=== PATIENT | male | born 1940 | race Caucasian/White ===

== ENCOUNTER 2017-08-10 19:43 | Emergency (ER) | payer MEDICARE, OTHER ==
[~2017-08-10] VITALS: Ht 182.9 cm; Wt 72.2 kg
[2017-08-10 20:10] VITALS: BP 162/61; PULSE 62; RESP 16; TEMP 97.8; O2SAT 97
[2017-08-10] MEDS ORDERED: TAMS5CAP PO (20:15)
[2017-08-10] MEDS ORDERED: ASPIRIN 81 MG CHEW TAB PO ONE (20:15)
[2017-08-10] MEDS ORDERED: SODIUM CHLORIDE 0.9% FLUSH 10 ML FLUSH IVF PRN (20:15)
[2017-08-10] MEDS ORDERED: AMBI5TAB PO (20:15)
[2017-08-10] MEDS ORDERED: GLUC100013 PO (20:15)
[2017-08-10] MEDS ORDERED: MULT-65 PO (20:15)
--- NOTE | 2017-08-10 20:15 | PD ---
HPI Chief Complaint: Cardiac Complaint Time Seen by Provider: 19:57 Travel History International Travel<30 days: No Contact w/Intl Traveler<30days: No Traveled to known affect area: No History of Present Illness HPI 76-year-old male presents to the emergency department by private transportation the care of his spouse for evaluation of palpitations or fluttering. Patient states that he has been his usual state of fairly good health with history of COPD enlarged prostate and previous pacemaker from 2005 for episode of bradycardia with near syncope. Patient's had no chest pain no increased shortness of breath no sweats no nausea no vomiting no referred neck jaw back shoulder arm or abdominal pain. Near-syncope or syncope. Patient states she is fairly active and continues to work part-time and after returning home from work this evening before dinner he started noticing that he is feeling a little sensation of fluttering in his chest. No recent long distance travel no protracted bedrest no surgical procedure no lower extremity pain or swelling orthopnea or PND. Patient also has had no recent febrile illness no productive cough or increased wheezing. Patient has not yet had disease in his flu vaccine. Patient rates his pain as 0/10 in intensity. Patient is unable to identify exacerbating or alleviating factors. Patient denies any active symptoms at this time. Patient also shares recently had his pacemaker evaluated and it checked out well. PFSH Past Medical History Narrative Medical Symptomatic bradycardia pacemaker dyslipidemia COPD lung surgery enlarged prostate; tobacco use; nursing notes reviewed Blood Disorders: No Cardiovascular Problems: Yes (LOW BLOOD PRESSURE/SLOW HEART BEAT...HAS HIGH BLOOD PRESSURE) High Cholesterol: Yes (HAS HIGH BLOOD PRESSURE..) Glaucoma: No Genitourinary: No Immune Disorder: No Musculoskeletal: No Neurologic: No Respiratory: No Thyroid Disease: No Past Surgical History Cardiac Surgery: Yes (PACEMAKER BEGINNING OF OCTOBER 11) Ear Surgery: No Endocrine Surgery: No Eye Surgery: No Genitourinary Surgery: No Gynecologic Surgery: No Oral Surgery: No Thoracic Surgery: Yes (LUNG SURGERY, REINFLATED LUNG( SECOND OCCURRENCE)) Other Surgery: Yes Social History Alcohol Use: No Tobacco Use: Yes (STOPPED OCT 06 45PACK/HISTORY) Substance Use: No Allergies-Medications (Allergen,Severity, Reaction): Coded Allergies: morphine (Unverified Allergy, Severe, 08/10/17) Reported Meds & Prescriptions Reported Meds & Active Scripts Active Reported Glucosamine (Glucosamine Sulfate) 1,000 Mg Cap 1,000 Mg PO DAILY Multi-Vitamin Daily (Multiple Vitamin) 1 Tab Tab 1 Tab PO DAILY Ambien (Zolpidem Tartrate) 5 Mg Tab 5 Mg PO HS PRN Flomax (Tamsulosin HCl) 0.4 Mg Cap 0.4 Mg PO HS Narrative Medication Inhalers, sleeping pill, prostate pill Review of Systems Except as stated in HPI: all other systems reviewed are Neg General / Constitutional: No: Fever, Chills Eyes: No: Visual changes HENT: No: Headaches, Lightheadedness, Congestion Cardiovascular: Positive: Palpitations, No: Chest Pain or Discomfort, Diaphoresis, Syncope, Dyspnea on exertion, Edema Respiratory: Positive: Cough (chronic), Shortness of Breath (chronic not worse than baseline), No: Wheezing, Orthopnea, Pleuritic Pain Gastrointestinal: No: Nausea, Vomiting, Abdominal Pain Genitourinary: No: Flank Pain Musculoskeletal: No: Myalgias, Arthralgias, Edema, Pain Skin: No Rash Neurologic: No: Weakness, Dizziness, Syncope, Focal Abnormalities, Coordination Problem, Headache, Change in Mentation Psychiatric: No: Anxiety Hematologic/Lymphatic: No: Easy Bruising Physical Exam Narrative GENERAL: Well-developed well-nourished male in no acute distress no respiratory distress; GCS 15 SKIN: Warm and dry. HEAD: Atraumatic. Normocephalic. EYES: Pupils equal and round. No scleral icterus. No injection or drainage. ENT: No nasal bleeding or discharge. Mucous membranes pink and moist. NECK: Trachea midline. No JVD. CARDIOVASCULAR: Regular rate and rhythm. RESPIRATORY: No accessory muscle use. Clear to auscultation. Breath sounds equal bilaterally. GASTROINTESTINAL: Abdomen soft, non-tender, nondistended. Hepatic and splenic margins not palpable. MUSCULOSKELETAL: Extremities without clubbing, cyanosis, or edema. No obvious deformities. NEUROLOGICAL: Awake and alert. No obvious cranial nerve deficits. Motor grossly within normal limits. Five out of 5 muscle strength in the arms and legs. Normal speech. PSYCHIATRIC: Appropriate mood and affect; insight and judgment normal. Data Data Last Documented VS Vital Signs Date Time Temp Pulse Resp B/P (MAP) Pulse Ox O2 Delivery O2 Flow Rate FiO2 08/10/17 20:33 140/60 (86) 131/58 (82) 08/10/17 20:19 97 Room Air 08/10/17 20:19 16 08/10/17 20:10 97.8 62 Orders Orders Electrocardiogram (08/10/17 20:07) Basic Metabolic Panel (Bmp) (08/10/17 20:07) Ckmb (Isoenzyme) Profile (08/10/17 20:07) Complete Blood Count With Diff (08/10/17 20:07) Magnesium (Mg) (08/10/17 20:07) Prothrombin Time / Inr (Pt) (08/10/17 20:07) Act Partial Throm Time (Ptt) (08/10/17 20:07) Troponin I (08/10/17 20:07) Chest, Single Ap (08/10/17 20:07) Ecg Monitoring (08/10/17 20:07) Bilateral Bp Monitoring (08/10/17 20:07) Iv Access Insert/Monitor (08/10/17 20:07) Oximetry (08/10/17 20:07) Oxygen Administration (08/10/17 20:07) Aspirin Chew (Aspirin Chew) (08/10/17 20:15) Sodium Chloride 0.9% Flush (Ns Flush) (08/10/17 20:15) CKMB (08/10/17 20:10) CKMB% (08/10/17 20:10) Labs Laboratory Tests Test 08/10/17 20:10 White Blood Count 9.0 TH/MM3 Red Blood Count 4.62 MIL/MM3 Hemoglobin 13.3 GM/DL Hematocrit 39.5 % Mean Corpuscular Volume 85.5 FL Mean Corpuscular Hemoglobin 28.9 PG Mean Corpuscular Hemoglobin Concent 33.8 % Red Cell Distribution Width 13.7 % Platelet Count 253 TH/MM3 Mean Platelet Volume 6.9 FL Neutrophils (%) (Auto) 57.6 % Lymphocytes (%) (Auto) 28.5 % Monocytes (%) (Auto) 6.2 % Eosinophils (%) (Auto) 7.0 % Basophils (%) (Auto) 0.7 % Neutrophils # (Auto) 5.1 TH/MM3 Lymphocytes # (Auto) 2.6 TH/MM3 Monocytes # (Auto) 0.6 TH/MM3 Eosinophils # (Auto) 0.6 TH/MM3 Basophils # (Auto) 0.1 TH/MM3 CBC Comment DIFF FINAL Differential Comment Prothrombin Time 10.9 SEC Prothromb Time International Ratio 1.0 RATIO Activated Partial Thromboplast Time 26.1 SEC Blood Urea Nitrogen 18 MG/DL Creatinine 1.20 MG/DL Random Glucose 135 MG/DL Calcium Level 8.9 MG/DL Magnesium Level 2.3 MG/DL Sodium Level 139 MEQ/L Potassium Level 3.6 MEQ/L Chloride Level 107 MEQ/L Carbon Dioxide Level 22.5 MEQ/L Anion Gap 10 MEQ/L Estimat Glomerular Filtration Rate 59 ML/MIN Total Creatine Kinase 279 U/L Troponin I LESS THAN 0.02 NG/ML MDM Medical Decision Making Medical Screen Exam Complete: Yes Emergency Medical Condition: Yes Medical Record Reviewed: Yes Interpretation(s) EKG: Paced rhythm rate 62 right bundle branch block block troponin I:less than 0.02, not elevated; CK: 279, ck mb%: 0.9% not elevated Last Impressions Chest X-Ray 08/10/172006 Signed Impressions: Service Date/Time: Thursday, August 10, 2017 20:11 - CONCLUSION: No acute disease. James Singh MD CBC & BMP Diagram 08/10/17 20:10 Calcium Level 8.9, Magnesium Level 2.3 Vital Signs Date Time Temp Pulse Resp B/P (MAP) Pulse Ox O2 Delivery O2 Flow Rate FiO2 08/10/17 20:33 140/60 (86) 131/58 (82) 08/10/17 20:19 97 Room Air 08/10/17 20:19 16 97 Room Air 08/10/17 20:10 97.8 62 16 162/61 (94) 97 08/10/17 20:10 62 97 Room Air Differential Diagnosis Palpitations, arrhythmia, electrolyte disturbance, ACS, ND, CHF, exacerbation COPD, PE Narrative Course Patient placed on groundwater monitoring technician IV access obtained specimens collected and sent for resulting EKG performed which reveals no acute ST elevation or injury pattern intermittent atrial paced rhythm with underlying right bundle branch block and left anterior fascicular block and on cardiac monitoring started to have rare unifocal PVC's. Diagnosis Primary Impression: Palpitations Additional Impressions: Unifocal PVCs History of COPD Referrals: Primary Care Physician call for appointment Patient Instructions: General Instructions Additional Instructions: Continue current medications as presently prescribed Follow up with her primary care provider Return to the emergency department for any concerns or change in condition Add low dose aspirin 81 mg daily Med/Other Pt SpecificInfo: No Change to Meds Disposition: 01 DISCHARGE HOME Condition: Stable Aidee Zhou MD Aug 10, 2017 20:15
[2017-08-10 20:19] VITALS: RESP 16; O2SAT 97
--- NOTE | 2017-08-10 20:25 | RADRPT ---
EXAM DATE/TIME: 08/10/2017 20:11 [facility] COMPARISON: No previous studies available for comparison. INDICATIONS : Shortness of breath. MEDICAL HISTORY : Hypertension. SURGICAL HISTORY : Pacemaker. ENCOUNTER: Initial ACUITY: 1 day PAIN SCORE: 0/10 LOCATION: Bilateral chest FINDINGS: A single view of the chest demonstrates the lungs to be symmetrically aerated without evidence of mas s, infiltrate or effusion. The cardiomediastinal contours are unremarkable. Osseous structures are intact. Dual-lead pacer from a left subclavian transvenous approach noted. CONCLUSION: No acute disease. James Singh MD on August 10, 2017 at 20:22 Board Certified Radiologist. This report was verified electronically.
[2017-08-10 20:33] VITALS: BP_SYST 131; BP_SYST 140; BP_DIAS 58; BP_DIAS 60
[2017-08-10 20:33] LABS: CHLORIDE 107 MEQ/L (98-107); POTASSIUM 3.6 MEQ/L (3.5-5.1); SODIUM (NA) 139 MEQ/L (136-145)
[2017-08-10 20:36] LABS: ANION GAP 10 MEQ/L (5-15); BICARBONATE 22.5 MEQ/L (21.0-32.0); BLOOD UREA NITROGEN 18 MG/DL (7-18); MAGNESIUM 2.3 MG/DL (1.5-2.5)
[2017-08-10 20:37] LABS: AUTOMATED NEUTROPHIL # 5.1 TH/MM3 (1.8-7.7); BASOPHIL # 0.1 TH/MM3 (0-0.2); BASOPHIL % 0.7 % (0.0-2.0); EOSINOPHIL # 0.6 TH/MM3 (0-0.4); HEMATOCRIT 39.5 % (39.0-51.0); HEMO FLAGS DIFF FINAL; LYMPH % 28.5 % (9.0-44.0); LYMPHOCYTE # 2.6 TH/MM3 (1.0-4.8); MEAN CELL VOLUME 85.5 FL (80.0-100.0); MEAN CORPUSCULAR HEMOGLOBIN 28.9 PG (27.0-34.0); MEAN CORPUSCULAR HGB CONC 33.8 % (32.0-36.0); MONO % 6.2 % (0.0-8.0); NEUT % 57.6 % (16.0-70.0); PLATELET COUNT 253 TH/MM3 (150-450); RED BLOOD COUNT 4.62 MIL/MM3 (4.50-5.90); RED CELL DISTRIBUTION WIDTH 13.7 % (11.6-17.2)
[2017-08-10 20:38] LABS: APTT (PATIENT) 26.1 SEC (24.3-30.1); PROTHROMBIN TIME - PATIENT 10.9 SEC (9.8-11.6)
[2017-08-10 20:40] LABS: GLOMERULAR FILTRATION RATE 59 ML/MIN (>89)
[2017-08-10 20:43] LABS: CREATINE KINASE 279 U/L (39-308)
[2017-08-10 20:55] LABS: CKMB 2.7 NG/ML (0.5-3.6)
--- NOTE | 2017-08-10 21:08 | EKG ---
Date Performed: 08/10/2017 Time Performed: 19:53:58 PTAGE: 76 years EKG: ELECTRONIC ATRIAL PACEMAKER RIGHT BUNDLE BRANCH BLOCK LEFT ANTERIOR FASCICULAR BLOCK POSSIB LE SEPTAL MYOCARDIAL INFARCTION ABNORMAL ECG PREVIOUS TRACING : 11/01/2005 12.02 Compared to previous tracing, atrial pacing is now evident, ventricular pacing is no longer present. DOCTOR: Tavo Alves Interpretating Date/Time 08/10/2017 21:07:03
[2017-08-10 21:28] VITALS: BP 144/69
== END 2017-08-10 21:32 | disposition home or self-care (01) ==
LOC: PHED 19:43
DX: R00.2 Palpitations (principal); I49.3 Ventricular premature depolarization; R94.31 Abnormal electrocardiogram [ECG] [EKG]; I10 Essential (primary) hypertension; E78.5 Hyperlipidemia, unspecified; Z95.0 Presence of cardiac pacemaker; Z87.09 Personal history of other diseases of the respiratory system; Z87.438 Personal history of other diseases of male genital organs; Z86.79 Personal history of other diseases of the circulatory system
CPT/HCPCS: 71010; 80048; 82550; 82552; 83735; 84484; 85025; 85610; 85730; 93005; 99285

== ENCOUNTER 2017-12-01 22:22 | Observation (INO) | payer MEDICARE, OTHER ==
[~2017-12-01] VITALS: Ht 177.8 cm; Wt 80.0 kg
[~2017-12-01 22:22] MED LIST: AMBI5TAB PO; GLUC100013 PO; MULT-65 PO; TAMS5CAP PO
[2017-12-01 22:27] VITALS: BP 152/67; PULSE 66; RESP 18; TEMP 98.4; O2SAT 94
[2017-12-01] MEDS ORDERED: SODIUM CHLORIDE 0.9% FLUSH 10 ML FLUSH IVF PRN (22:30)
--- NOTE | 2017-12-01 22:37 | PD ---
HPI Chief Complaint: Respiratory Symptoms Time Seen by Provider: 22:30 Travel History International Travel<30 days: No Contact w/Intl Traveler<30days: No Traveled to known affect area: No History of Present Illness HPI The patient is a 77 year old male who presents to the [facility] emergency department with a history of cough and shortness of breath that began on yesterday. He reports that it began in the afternoon and slowly worsened in the evening. He reports that this morning it had improved and he was able to go to work. He reports that the symptoms again recurred around 4-5 PM. He reports he had wheezing, shortness of breath, and a cough productive of brown sputum. He denies having any known recent fevers. He does have a history of COPD. He denies any prior history of DVT or PE. He reports having chest tightness with the shortness of breath. He has a history of syncope with symptomatic bradycardia status post pacemaker placement 10 years ago. He denies having any prior history of coronary artery disease. He reports that he quit smoking in 2005. Otherwise on review of systems, the patient denies having any neck pain,abdominal pain, vomiting, diarrhea, urinary symptoms, or neurologic symptoms. [facility] Past Medical History Narrative Medical The patient's past medical history is significant for bradycardia s/p pacemaker placement, COPD, collapsed lung 50 years, hyperlipidemia, BPH, insomnia, hematuria s/p negative w/u in past. Blood Disorders: No Cardiovascular Problems: Yes (DEMAND PACE MAKER) High Cholesterol: Yes (HAS HIGH BLOOD PRESSURE..) Glaucoma: No Genitourinary: Yes (ENLARGED PROSTATE) Immune Disorder: No Musculoskeletal: No Neurologic: No Respiratory: Yes (COPD, PNEUMOTHORAX X 2) Integumentary: Yes (SHINGLES) Thyroid Disease: No Tetanus Vaccination: Unknown Influenza Vaccination: No Past Surgical History Narrative Surgical lung surgery for recurrrent pneumothroax, hernia repair, rentinal sx, Abdominal Surgery: Yes (HERNIA REPAIR) Cardiac Surgery: Yes (PACEMAKER BEGINNING OF OCTOBER 11) Ear Surgery: No Endocrine Surgery: No Eye Surgery: Yes (RETINA REPAIR) Genitourinary Surgery: No Gynecologic Surgery: No Oral Surgery: No Thoracic Surgery: Yes (LUNG SURGERY, REINFLATED LUNG( SECOND OCCURRENCE)) Other Surgery: Yes (HEMORRHOID SX, right great toe surgery.) Social History Alcohol Use: No Tobacco Use: No (quit in 2005.) Substance Use: No Allergies-Medications (Allergen,Severity, Reaction): Coded Allergies: morphine (Unverified Allergy, Severe, 08/10/17) Reported Meds & Prescriptions Reported Meds & Active Scripts Active Prednisone 20 Mg Tab 20 Mg PO BID 7 Days [Budeson-Formot 160-4.5 Mcg Inh] 60 PUFF Aero 1 Puff INH Q12HR Levaquin (Levofloxacin) 750 Mg Tablet 750 Mg PO DAILY Reported Glucosamine (Glucosamine Sulfate) 1,000 Mg Cap 1,000 Mg PO DAILY Multi-Vitamin Daily (Multiple Vitamin) 1 Tab Tab 1 Tab PO DAILY Ambien (Zolpidem Tartrate) 5 Mg Tab 5 Mg PO HS PRN Flomax (Tamsulosin HCl) 0.4 Mg Cap 0.4 Mg PO HS Review of Systems Except as stated in HPI: all other systems reviewed are Neg General / Constitutional: No: Fever Eyes: No: Visual changes HENT: No: Headaches Cardiovascular: Positive: Chest Pain or Discomfort (in back on left) Respiratory: Positive: Cough, Shortness of Breath Gastrointestinal: No: Abdominal Pain Genitourinary: No: Dysuria Musculoskeletal: No: Pain Skin: No Rash Neurologic: No: Weakness, Focal Abnormalities, Change in Mentation, Slurred Speech, Sensory Disturbance Psychiatric: No: Depression Endocrine: No: Polydipsia Hematologic/Lymphatic: No: Easy Bruising Physical Exam Narrative General: The patient is a well-developed well-nourished male in no acute distress. Head and Neck exam: Head is normocephalic atraumatic. Eyes: EOMI, pupils are equal round and reactive to light. Nose: Midline septum with pink mucous membranes Mouth: Dentition unremarkable. Moist mucus membranes. Posterior oropharynx is not erythematous. No tonsillar hypertrophy. Uvula midline. Airway patent. Neck: No palpable lymphadenopathy. No nuchal rigidity. No thyromegaly. Cardiovascular: Regular rate and rhythm without murmurs, gallops, or rubs. Lungs: Soft expiratory wheezes audible in bilateral lung landaverde, no rhonchi, no crackles. Abdomen: Soft, without tenderness to palpation in all 4 quadrants of the abdomen. No guarding, rebound, or rigidity. Normal bowel sounds are audible. No tenderness on palpation of McBurney's point. Negative Barton sign. Extremities: No clubbing, cyanosis, or edema. 2+ pulses in all 4 extremities. No calf tenderness on palpation. Back: No spinous process tenderness to palpation. No costovertebral angle tenderness to palpation. Neurologic Exam: Grossly nonfocal. Skin Exam: No rash noted. Intact skin that is warm and dry. Data Data Last Documented VS Vital Signs Date Time Temp Pulse Resp B/P (MAP) Pulse Ox O2 Delivery O2 Flow Rate FiO2 12/01/17 23:52 64 20 168/70 (102) 95 Nasal Cannula 2.00 12/01/17 22:27 98.4 Orders Orders Complete Blood Count With Diff (12/01/17 22:30) Comprehensive Metabolic Panel (12/01/17 22:30) B-Type Natriuretic Peptide (12/01/17 22:30) Act Partial Throm Time (Ptt) (12/01/17 22:30) Prothrombin Time / Inr (Pt) (12/01/17 22:30) Magnesium (Mg) (12/01/17 22:30) Ckmb (Isoenzyme) Profile (12/01/17 22:30) Troponin I (12/01/17 22:30) Iv Access Insert/Monitor (12/01/17 22:30) Electrocardiogram (12/01/17 22:30) Ecg Monitoring (12/01/17 22:30) Oximetry (12/01/17 22:30) Oxygen Administration (12/01/17 22:30) Chest, Single Ap (12/01/17 22:30) Sodium Chloride 0.9% Flush (Ns Flush) (12/01/17 22:30) CKMB (12/01/17 22:32) CKMB% (12/01/17 22:32) Albuterol-Ipratropium Neb (Duoneb Neb) (12/02/17 00:00) Levofloxacin 750 Mg Premix Inj (Levaquin (12/02/17 00:00) Ct Pulmonary Angiogram (12/01/17 23:51) Iohexol 350 Inj (Omnipaque 350 Inj) (12/02/17 00:42) Admit Order (Ed Use Only) (12/02/17 02:16) Labs Laboratory Tests Test 12/01/17 22:32 White Blood Count 9.0 TH/MM3 Red Blood Count 4.40 MIL/MM3 Hemoglobin 13.1 GM/DL Hematocrit 37.8 % Mean Corpuscular Volume 86.0 FL Mean Corpuscular Hemoglobin 29.8 PG Mean Corpuscular Hemoglobin Concent 34.6 % Red Cell Distribution Width 14.7 % Platelet Count 266 TH/MM3 Mean Platelet Volume 6.6 FL Neutrophils (%) (Auto) 62.1 % Lymphocytes (%) (Auto) 18.1 % Monocytes (%) (Auto) 10.1 % Eosinophils (%) (Auto) 8.9 % Basophils (%) (Auto) 0.8 % Neutrophils # (Auto) 5.6 TH/MM3 Lymphocytes # (Auto) 1.6 TH/MM3 Monocytes # (Auto) 0.9 TH/MM3 Eosinophils # (Auto) 0.8 TH/MM3 Basophils # (Auto) 0.1 TH/MM3 CBC Comment DIFF FINAL Differential Comment Prothrombin Time 10.7 SEC Prothromb Time International Ratio 1.1 RATIO Activated Partial Thromboplast Time 25.8 SEC Blood Urea Nitrogen 15 MG/DL Creatinine 1.00 MG/DL Random Glucose 93 MG/DL Total Protein 7.2 GM/DL Albumin 4.0 GM/DL Calcium Level 8.9 MG/DL Magnesium Level 2.4 MG/DL Alkaline Phosphatase 74 U/L Aspartate Amino Transf (AST/SGOT) 20 U/L Alanine Aminotransferase (ALT/SGPT) 21 U/L Total Bilirubin 0.9 MG/DL Sodium Level 141 MEQ/L Potassium Level 3.8 MEQ/L Chloride Level 109 MEQ/L Carbon Dioxide Level 23.4 MEQ/L Anion Gap 9 MEQ/L Estimat Glomerular Filtration Rate 73 ML/MIN Total Creatine Kinase 325 U/L Creatine Kinase MB 3.0 NG/ML Creatine Kinase MB % 0.9 % Troponin I LESS THAN 0.02 NG/ML B-Type Natriuretic Peptide 115 PG/ML MDM Medical Decision Making Medical Screen Exam Complete: Yes Emergency Medical Condition: Yes Medical Record Reviewed: Yes Interpretation(s) Last Impressions CT Angiography 12/01/17 4808 Signed Impressions: Service Date/Time: Saturday, December 02, 2017 00:38 - CONCLUSION: 1. No CT evidence of pulmonary artery embolism. 2. Moderate to severe upper lobe predominant centrilobular emphysema. 3. 5 mm solid nodule in the right lung base. Followup examination may be performed in 6 months to document stability per 2017 Fleischner criteria. 4. Coronary artery calcifications. Nick Short MD Chest X-Ray 12/01/170 Signed Impressions: Service Date/Time: Friday, December 01, 2017 22:39 - CONCLUSION: 1. No acute abnormality or significant interval change. Nick Short MD Differential Diagnosis COPD exacerbation, versus congestive heart failure, versus pneumonia Narrative Course During the course of the patient's emergency department visit, the patient's history, examination, and differential diagnosis were reviewed with the patient. The patient was placed on a monitor tech with oximetry and frequent blood pressure monitoring. The patient had IV access obtained and blood work sent for analysis. The patient had an EKG done on arrival that shows a sinus rhythm heart rate is 65, QRS duration is 170 ms, QTC 461 ms, right bundle branch block is noted, left anterior fascicular block is noted. No acute ST segment elevation is noted, T waves are inverted in V1, V2, V3 with downsloping ST segments in V1, V2, V3, 1 and aVL. The patient was initially provided a DuoNeb. The patient was given Levaquin. The patient's laboratory studies were reviewed and remarkable for a CMP that is remarkable for a chloride of 109, GFR 73, CPK 325 with a normal MB percent, troponin I less than 0.02, BNP 115, PT 10.7, PTT 25.8, CBC shows a white count of 9, hemoglobin 13.1, platelets 266 with a monocytosis of 10.1. Radiology studies were reviewed and remarkable for a chest x-ray that showed no acute abnormality. CTA to rule out PE showed no evidence of pulmonary embolism , moderate to severe upper lobe emphysema, 5 mm solid nodule in the right lung base follow-up examination may be performed in 6 months to document stability. Coronary artery calcifications are noted. The patient's results were discussed with the patient, including the plan of care. I explained that further testing and/ or monitoring is indicated based on the patient's history, examination, and/ or laboratory findings. Therefore, I recommended admission for additional evaluation. The patient expressed understanding and was agreeable with this plan. The patient was admitted to the hospital in stable condition and sent to a bed under the care of the [facility] service. Physician Communication Physician Communication The patient's case including history, pertinent physical examination findings, and laboratory studies were discussed with Dr. Leonard. It was agreed that the patient would be admitted to the [facility] Hospitalist service. Diagnosis Primary Impression: COPD exacerbation Admitting Information Admitting Physician Requests: Observation Scripts Prednisone (Prednisone) 20 Mg Tab 20 MG PO BID for COPD exac for 7 Days, #14 TAB 0 Refills Prov: Wanda ValdiviaP 12/02/17 [Budeson-Formot 160-4.5 Mcg Inh] 60 PUFF AERO No Conflict Check 1 PUFF INH Q12HR for COPD, #1 CYLINDER Prov: Wanda Valdivia 12/02/17 Levofloxacin (Levaquin) 750 Mg Tablet 750 MG PO DAILY for COPD exacerbation, #6 TAB Prov: Wanda Valdivia 12/02/17 Lynn Mosqueda MD Dec 01, 2017 22:37
--- NOTE | 2017-12-01 22:46 | RADRPT ---
EXAM DATE/TIME: 12/01/2017 22:39 [facility] COMPARISON: CHEST SINGLE AP, August 10, 2017, 20:11. INDICATIONS : Short of breath MEDICAL HISTORY : Hypertension. SURGICAL HISTORY : Pacemaker. ENCOUNTER: Initial ACUITY: 1 day PAIN SCORE: 1/10 LOCATION: Bilateral chest FINDINGS: Stable dual-lead pacemaker in place. Mild diffuse interstitial prominence unchanged from prior exam. No significant new focal pleural or parenchymal opacities. Cardiomediastinal contours are within norm al limits. Bony thorax is intact. CONCLUSION: 1. No acute abnormality or significant interval change. Nick Short MD on December 01, 2017 at 22:45 Board Certified Radiologist. This report was verified electronically.
[2017-12-01 22:49] LABS: AUTOMATED NEUTROPHIL # 5.6 TH/MM3 (1.8-7.7); BASOPHIL # 0.1 TH/MM3 (0-0.2); BASOPHIL % 0.8 % (0.0-2.0); EOSINOPHIL # 0.8 TH/MM3 (0-0.4); EOSINOPHIL % 8.9 % (0.0-4.0); HEMATOCRIT 37.8 % (39.0-51.0); HEMOGLOBIN 13.1 GM/DL (13.0-17.0); LYMPH % 18.1 % (9.0-44.0); LYMPHOCYTE # 1.6 TH/MM3 (1.0-4.8); MEAN CORPUSCULAR HEMOGLOBIN 29.8 PG (27.0-34.0); MEAN CORPUSCULAR HGB CONC 34.6 % (32.0-36.0); MEAN PLATELET VOLUME 6.6 FL (7.0-11.0); MONO % 10.1 % (0.0-8.0); MONOCYTE # 0.9 TH/MM3 (0-0.9); NEUT % 62.1 % (16.0-70.0); PLATELET COUNT 266 TH/MM3 (150-450); RED CELL DISTRIBUTION WIDTH 14.7 % (11.6-17.2)
[2017-12-01 22:59] LABS: INTERNATIONAL NORMALIZED RATIO 1.1 RATIO; PROTHROMBIN TIME - PATIENT 10.7 SEC (9.8-11.6)
[2017-12-01 23:13] LABS: ALT (GPT) 21 U/L (12-78); AST (GOT) 20 U/L (15-37); BICARBONATE 23.4 MEQ/L (21.0-32.0); BLOOD UREA NITROGEN 15 MG/DL (7-18); CALCIUM 8.9 MG/DL (8.5-10.1); CHLORIDE 109 MEQ/L (98-107); GLOMERULAR FILTRATION RATE 73 ML/MIN (>89); GLUCOSE,RANDOM 93 MG/DL (74-106); MAGNESIUM 2.4 MG/DL (1.5-2.5); SODIUM (NA) 141 MEQ/L (136-145)
[2017-12-01 23:16] LABS: ALKALINE PHOSPHATASE 74 U/L (45-117); TOTAL BILIRUBIN ADULT 0.9 MG/DL (0.2-1.0); TOTAL PROTEIN 7.2 GM/DL (6.4-8.2); TROPONIN I LESS THAN 0.02 NG/ML (0.02-0.05)
[2017-12-01 23:52] VITALS: BP 168/70; PULSE 64; RESP 20; O2SAT 95
[2017-12-02] VITALS (8 sets, daily range): BP systolic 125–161; BP diastolic 67–79; PULSE 60–97; RESP 18–20; TEMP 97.6–97.7; O2SAT 93–98
[2017-12-02] MEDS ORDERED: LEVOFLOXACIN 750 MG PREMIX INJ 150 ML IV ONE
[2017-12-02] MEDS ORDERED: RESP: ALBUTEROL 2.5 MG/IPRATROPIUM 0.5 MG NEB (SCH) NEB ONE
[2017-12-02] MEDS ORDERED: IOHEXOL 350 MG/ML 10 ML VIAL (for RAD DIAG) IVCONTRAST ONE (00:42)
--- NOTE | 2017-12-02 01:15 | RADRPT ---
EXAM DATE/TIME: 12/02/2017 00:38 [facility] COMPARISON: No previous studies available for comparison. INDICATIONS : Short of breath. IV CONTRAST: 75 cc Omnipaque 350 (iohexol) IV RADIATION DOSE: 10.71 CTDIvol (mGy) MEDICAL HISTORY : Chronic obstructive pulmonary disease. Cardiovascular disease SURGICAL HISTORY : ENCOUNTER: Initial ACUITY: 1 day PAIN SCALE: 0/10 LOCATION: Bilateral chest TECHNIQUE: Volumetric scanning of the chest was performed using a pulmonary embolism protocol MIP images were re constructed. Using automated exposure control and adjustment of the mA and/or kV according to patien t size, radiation dose was kept as low as reasonably achievable to obtain optimal diagnostic quality images. DICOM format image data is available electronically for review and comparison. Follow-up recommendations for detected pulmonary nodules are based at a minimum on nodule size and pa tient risk factors according to Fleischner Society Guidelines. FINDINGS: PULMONARY ARTERIES: No filling defects are seen in the pulmonary arteries through the segmental level. LUNGS: Moderate to severe upper lobe predominant centrilobular emphysema. 5 mm solid nodule in the right azra g base. PLEURAE: There is no pleural thickening or pleural effusion. MEDIASTINUM: Coronary calcifications. Dual-lead pacemaker in place. Heart is unremarkable without significant andra cardial effusion. No significant adenopathy. MUSCULOSKELETAL: Within normal limits for patient age. MISCELLANEOUS: The visualized upper abdominal organs demonstrate no acute abnormality. CONCLUSION: 1. No CT evidence of pulmonary artery embolism. 2. Moderate to severe upper lobe predominant centrilobular emphysema. 3. 5 mm solid nodule in the right lung base. Followup examination may be performed in 6 months to doc ument stability per 2017 Fleischner criteria. 4. Coronary artery calcifications. Nick Short MD on December 02, 2017 at 1:10 Board Certified Radiologist. This report was verified electronically.
[2017-12-02] MEDS ORDERED: ZOLPIDEM TARTRATE 5 MG TAB PO PRN (03:15)
[2017-12-02] MEDS ORDERED: RESP: ALBUTEROL 2.5 MG/IPRATROPIUM 0.5 MG NEB (PRN) NEB (03:15)
[2017-12-02] MEDS ORDERED: ACETAMINOPHEN 325 MG TAB PO PRN (03:15)
[2017-12-02] MEDS ORDERED: SODIUM CHLORIDE 0.9% FLUSH 10 ML FLUSH IV FLUSH PRN (03:15)
[2017-12-02] MEDS ORDERED: NALOXONE HCL 0.4 MG/ML AMP IV PUSH PRN (03:15)
[2017-12-02] MEDS ORDERED: ONDANSETRON HCL 4 MG/2 ML VIAL IVP PRN (03:15)
[2017-12-02] MEDS: RESP: ALBUTEROL 2.5 MG/IPRATROPIUM 0.5 MG NEB (SCH) NEB ×3 (03:20→15:16)
[2017-12-02] MEDS ORDERED: methylPREDNISolone SOD SUCC 125 MG/2 ML VIAL IV PUSH ONE (03:45)
--- NOTE | 2017-12-02 03:49 | HHI.HP ---
[facility] Masood Rodriguez MD Admission Diagnosis COPD exacerbation, bronchitis Diagnoses: Travel History International Travel<30 Days: No Contact w/Intl Traveler <30 Da: No Traveled to Known Affected Are: No History of Present Illness 77-year-old male with a past medical history significant for COPD, pacemaker placement for bradycardia and a remote history of recurrent pneumothorax presents to the emergency department for evaluation of shortness of breath. The patient reports he had his call IV back this evening when he got out of the shower and was unable to put more than 2 words together because he was gasping for air. He reports the shortness of breath started 2 days ago and has gotten persistently worse. He endorses a 2 day history of a cough productive of brown sputum. He states his cough is increased in frequency. He denies any fever/chills. This pain. No abdominal pain/nausea/vomiting/diarrhea. No lateralizing signs/symptoms. Review of Systems Except as stated in HPI: all other systems reviewed are Neg Past Family Social History Past Medical History COPD Bradycardia History of recurrent pneumothorax Past Surgical History Pacemaker placement Thoracotomy Reported Medications Reported Meds & Active Scripts Active Reported Glucosamine (Glucosamine Sulfate) 1,000 Mg Cap 1,000 Mg PO DAILY Multi-Vitamin Daily (Multiple Vitamin) 1 Tab Tab 1 Tab PO DAILY Ambien (Zolpidem Tartrate) 5 Mg Tab 5 Mg PO HS PRN Flomax (Tamsulosin HCl) 0.4 Mg Cap 0.4 Mg PO HS Allergies: Coded Allergies: morphine (Unverified Allergy, Severe, 08/10/17) Family History Mother with CAD Social History Quit tobacco 10 years ago. Rare alcohol. Denies illicit drugs. Physical Exam Vital Signs Vital Signs Date Time Temp Pulse Resp B/P (MAP) Pulse Ox O2 Delivery O2 Flow Rate FiO2 12/02/17 03:22 98 Nasal Cannula 2.00 12/02/17 02:29 71 20 156/74 (101) 97 Nasal Cannula 2.00 12/01/17 23:52 64 20 168/70 (102) 95 Nasal Cannula 2.00 12/01/17 22:36 96 Nasal Cannula 2.00 2/26/18 22:31 65 20 98 Nasal Cannula 2.00 12/01/17 22:27 98.4 66 18 152/67 (95 94 Physical Exam GENERAL: male sitting up in bed SKIN: No rashes, ecchymoses or lesions. Cool and dry. HEAD: Atraumatic. Normocephalic. No temporal or scalp tenderness. EYES: Pupils equal round and reactive. Extraocular motions intact. No scleral icterus. No injection or drainage. ENT: Nose without bleeding, purulent drainage or septal hematoma. Throat without erythema, tonsillar hypertrophy or exudate. Uvula midline. Airway patent. NECK: Trachea midline. No JVD or lymphadenopathy. Supple, nontender, no meningeal signs. CARDIOVASCULAR: Regular rate and rhythm without murmurs, gallops, or rubs. RESPIRATORY: Bilateral wheezes. No rales or rhonchi GASTROINTESTINAL: Abdomen soft, non-tender, nondistended. No hepato-splenomegaly , or palpable masses. No guarding. MUSCULOSKELETAL: Extremities without clubbing, cyanosis, or edema. No joint tenderness, effusion, or edema noted. No calf tenderness. NEUROLOGICAL: Awake and alert. Cranial nerves II through XII intact. Motor and sensory grossly within normal limits. Normal speech. Laboratory Laboratory Tests Test 12/01/17 22:32 White Blood Count 9.0 Red Blood Count 4.40 Hemoglobin 13.1 Hematocrit 37.8 Mean Corpuscular Volume 86.0 Mean Corpuscular Hemoglobin 29.8 Mean Corpuscular Hemoglobin Concent 34.6 Red Cell Distribution Width 14.7 Platelet Count 266 Mean Platelet Volume 6.6 Neutrophils (%) (Auto) 62.1 Lymphocytes (%) (Auto) 18.1 Monocytes (%) (Auto) 10.1 Eosinophils (%) (Auto) 8.9 Basophils (%) (Auto) 0.8 Neutrophils # (Auto) 5.6 Lymphocytes # (Auto) 1.6 Monocytes # (Auto) 0.9 Eosinophils # (Auto) 0.8 Basophils # (Auto) 0.1 CBC Comment DIFF FINAL Differential Comment Prothrombin Time 10.7 Prothromb Time International Ratio 1.1 Activated Partial Thromboplast Time 25.8 Blood Urea Nitrogen 15 Creatinine 1.00 Random Glucose 93 Total Protein 7.2 Albumin 4.0 Calcium Level 8.9 Magnesium Level 2.4 Alkaline Phosphatase 74 Aspartate Amino Transf (AST/SGOT) 20 Alanine Aminotransferase (ALT/SGPT) 21 Total Bilirubin 0.9 Sodium Level 141 Potassium Level 3.8 Chloride Level 109 Carbon Dioxide Level 23.4 Anion Gap 9 Estimat Glomerular Filtration Rate 73 Total Creatine Kinase 325 Creatine Kinase MB 3.0 Creatine Kinase MB % 0.9 Troponin I LESS THAN 0.02 B-Type Natriuretic Peptide 115 Result Diagram: 12/01/17223112/01/172231 Caprini VTE Risk Assessment Caprini VTE Risk Assessment: Mod/High Risk (score >= 2) Caprini Risk Assessment Model Point Value = 1 Point Value = 2 Point Value = 3 Point Value = 5 Age 41-60 Minor surgery BMI > 25 kg/m2 Swollen legs Varicose veins or History of unexplained or recurrent spontaneous Oral contraceptives or hormone replacement Sepsis (< 1 month) Serious lung disease, including pneumonia (< 1 month) Abnormal pulmonary function Acute myocardial infarction Congestive heart failure (< 1 month) History of inflammatory bowel disease Medical patient at bed rest Age 61-74 Arthroscopic surgery Major open surgery (> 45 min) Laparoscopic surgery (> 45 min) Malignancy Confined to bed (> 72 hours) Immobilizing plaster cast Central venous access Age >= 75 History of VTE Family history of VTE Factor V Leiden Prothrombin [id number] Lupus anticoagulant Anticardiolipin antibodies Elevated serum homocysteine Heparin-induced thrombocytopenia Other congenital or acquired thrombophilia Stroke (< 1 month) Elective arthroplasty Hip, pelvis, or leg fracture Acute spinal cord injury (< 1 month) Prophylaxis Regimen Total Risk Factor Score Risk Level Prophylaxis Regimen 0-1 Low Early ambulation 2 Moderate Order ONE of the following: *Sequential Compression Device (SCD) *Heparin 5000 units SQ BID 3-4 Higher Order ONE of the following medications: *Heparin 5000 units SQ TID *Enoxaparin/Lovenox 40 mg SQ daily (WT < 150 kg, CrCl > 30 mL/min) *Enoxaparin/Lovenox 30 mg SQ daily (WT < 150 kg, CrCl > 10-29 mL/min) *Enoxaparin/Lovenox 30 mg SQ BID (WT < 150 kg, CrCl > 30 mL/min) AND/OR *Sequential Compression Device (SCD) 5 or more Highest Order ONE of the following medications: *Heparin 5000 units SQ TID (Preferred with Epidurals) *Enoxaparin/Lovenox 40 mg SQ daily (WT < 150 kg, CrCl > 30 mL/min) *Enoxaparin/Lovenox 30 mg SQ daily (WT < 150 kg, CrCl > 10-29 mL/min) *Enoxaparin/Lovenox 30 mg SQ BID (WT < 150 kg, CrCl > 30 mL/min) AND *Sequential Compression Device (SCD) Assessment and Plan Assessment and Plan Assessment/plan: 1. COPD exacerbation Chest x-ray with no acute abnormality, personally reviewed CTA negative for PE 5 mm solid nodule in the right lung base - will need outpatient follow-up with repeat examination in 6 months DuoNebs IV Steroids Supplemental oxygen as needed Levaquin given increased cough and sputum production 2. Symptomatic bradycardia Pacemaker in place FEN Heart healthy diet Electrolytes: monitor and replete prn Heparin Amanda Leonard MD Dec 02, 2017 03:49
[2017-12-02] MEDS: HEPARIN SODIUM - SQ 10,000 UNITS/ML VIAL SQ SCH ×2 (06:00→13:57)
[2017-12-02] MEDS ORDERED: SODIUM CHLORIDE 0.9% FLUSH 10 ML FLUSH IV FLUSH SCH (09:00)
--- NOTE | 2017-12-02 11:34 | HHI.PR ---
Subjective Remarks Follow-up visit SOB, COPD exacerbation. Patient seen and examined today sitting in bed. Patient reports he is doing better compared to when he first came in. He had his nebulizer treatment and IV steroids provided for him. On O2 nasal cannula but states he does not use any oxygen at home. States he's been walking around the unit without any shortness of breath or dyspnea. No chest pain, palpitations, headaches, dizziness, weakness. Denies any fevers, chills, nausea, vomiting, diarrhea. Objective Vitals Vital Signs Date Time Temp Pulse Resp B/P (MAP) Pulse Ox O2 Delivery O2 Flow Rate FiO2 12/02/17 09:21 78 18 148/79 (102) 97 Nasal Cannula 2.00 12/02/17 06:25 79 20 156/67 (96) 96 Nasal Cannula 2.00 12/02/17 03:22 98 Nasal Cannula 2.00 12/02/17 02:29 71 20 156/74 (101) 97 Nasal Cannula 2.00 12/01/17 23:52 64 20 168/70 (102) 95 Nasal Cannula 2.00 12/01/17 22:36 96 Nasal Cannula 2.00 12/01/17 22:31 65 20 98 Nasal Cannula 2.00 12/01/17 22:27 98.4 66 18 152/67 (95) 94 Result Diagram: 12/01/17223112/01/172231 Imaging Last Impressions CT Angiography 12/01/172350 Signed Impressions: Service Date/Time: Saturday, December 02, 2017 00:38 - CONCLUSION: 1. No CT evidence of pulmonary artery embolism. 2. Moderate to severe upper lobe predominant centrilobular emphysema. 3. 5 mm solid nodule in the right lung base. Followup examination may be performed in 6 months to document stability per 2017 Fleischner criteria. 4. Coronary artery calcifications. Nick Short MD Chest X-Ray 12/01/172229 Signed Impressions: Service Date/Time: Friday, December 01, 2017 22:39 - CONCLUSION: 1. No acute abnormality or significant interval change. Nick Short MD Objective Remarks GENERAL: This is a well-nourished, well-developed patient, in no apparent distress. SKIN: Warm and dry. HEENT: Normocephalic. Pupils equal round and reactive. Nose without bleeding. Airway patent. NECK: Trachea midline. CARDIOVASCULAR: Regular rate and rhythm without murmurs, gallops, or rubs. RESPIRATORY: Diminished left lobe. No wheezes, rales, or rhonchi. GASTROINTESTINAL: Abdomen soft, non-tender, nondistended. Bowel Sounds normoactive x4. MUSCULOSKELETAL: Extremities without clubbing, cyanosis, or edema. NEUROLOGICAL: Awake and alert. Oriented to time, place, person. No focal neuro deficit. Moves all extremities. Normal speech. A/P Problem List: (1) COPD exacerbation ICD Code: J44.1 - Chronic obstructive pulmonary disease with (acute) exacerbation (2) History of pneumothorax ICD Code: Z87.09 - Personal history of other diseases of the respiratory system Assessment and Plan Patient is a 77-year-old male with past medical history of COPD, PPM for bradycardia, pneumothorax given to the hospital for shortness of breath. COPD with exacerbation - Chest x-ray showed no acute abnormality - CTA negative for PE but quit 5 mm solid nodule at the right lung base noted. Discuss with patient extensively that he will need to follow-up chest x- ray 6 months with his primary care. Agrees with plan. - DuoNeb's as scheduled, duo nebs when necessary - IV steroids. Patient has improved significantly we'll switch to by mouth steroids. - O2 when necessary keep O2 sat greater than 90%. If unable to tolerate without O2 will to walk test. - Levaquin switch over to by mouth - Patient states he has significantly improved. Has rescue inhaler at home albuterol. We'll start Symbicort. If patient improves to psychiatric plan to DC with by mouth steroids, Levaquin by mouth and Symbicort follow-up with his PCP. Bradycardia - PPM in place. No episodes of bradycardia noted on the monitor. DVT prop early ambulation. Discharge patient to home Condition on discharge: Improved Regular Diet as tolerated Ad Jessica activity Rx written: Symbicort BID, Levaquin 750mg daily, Prednisone 20mg BID Follow-up with primary care physician Discharge Planning If improved this afternoon patient be DC'd home with by mouth steroids, by mouth Levaquin, Symbicort. Wanda Valdivia Dec 02, 2017 11:34
[2017-12-02] MEDS ORDERED: BUDESONIDE-FORMOTEROL 160/4.5 MCG INHALER INH SCH (11:45)
[2017-12-02] MEDS ORDERED: Budeson-Formot 160-4.5 Mcg Inh INH (11:55)
[2017-12-02] MEDS ORDERED: PRED20 PO (11:55)
[2017-12-02] MEDS ORDERED: LEVA750T9 PO (11:55)
[2017-12-02] MEDS ORDERED: methylPREDNISolone SOD SUCC 40 MG/1 ML VIAL IV PUSH SCH (16:00)
[2017-12-02] MEDS ORDERED: TAMSULOSIN HCL 0.4 MG CAP PO SCH (21:00)
--- NOTE | 2017-12-02 22:17 | EKG ---
Date Performed: 12/01/2017 Time Performed: 22:29:27 PTAGE: 77 years EKG: Sinus rhythm WITH FIRST DEGREE AV BLOCK RIGHT BUNDLE BRANCH BLOCK LEFT ANTERIOR FASCICULAR BLOCK LEFT VENTRICULAR HYPERTROPHY AND ST-T CHANGE POSSIBLE SEPTAL MYOCARDIAL INFARCTION ABNORMAL ECG PREVIOUS TRACING : 08/10/2017 19.53 Since the prior tracing, there has been no significant baker DOCTOR: Darrin Griffin Interpretating Date/Time 12/02/2017 22:17:33
[2017-12-03] MEDS ORDERED: LEVOFLOXACIN 750 MG PREMIX INJ 150 ML IV SCH
[2017-12-03] MEDS ORDERED: LEVOFLOXACIN 750 MG TAB PO SCH (09:00)
== END 2017-12-02 16:43 | disposition home or self-care (01) ==
LOC: NEPE 22:22 → NEDA 12-02 02:18 → NEDH 12-02 06:15 → NEPHCDU 12-02 09:54
PROVIDERS: ADMIT Hospitalist; ATTEND Hospitalist
DX: J44.1 Chronic obstructive pulmonary disease with (acute) exacerbation (principal); R00.1 Bradycardia, unspecified; I45.2 Bifascicular block; D72.821 Monocytosis (symptomatic); R91.1 Solitary pulmonary nodule; I25.10 Atherosclerotic heart disease of native coronary artery without angina pectoris; I10 Essential (primary) hypertension; E78.00 Pure hypercholesterolemia, unspecified; J43.2 Centrilobular emphysema; I44.0 Atrioventricular block, first degree; R94.31 Abnormal electrocardiogram [ECG] [EKG]; R55 Syncope and collapse; N40.0 Benign prostatic hyperplasia without lower urinary tract symptoms; Z95.0 Presence of cardiac pacemaker; Z87.891 Personal history of nicotine dependence
CPT/HCPCS: 71045; 71275; 80053; 82550; 82552; 83735; 83880; 84484; 85025; 85610; 85730; 93005; 94640; 94664; 96365; 96372; 96375; 97161; 99285; G0378; G8987; G8988; J1644; J1956; J2930; Q9967